=== PATIENT | female | born 1960 | race African-American/Black ===

== ENCOUNTER 2017-07-06 14:47 | Observation (INO) | payer OTHER ==
--- NOTE | 2017-07-06 15:00 | PDOC ---
Rapid Medical Evaluation Time Seen by Provider: 07/06/17 14:56 Medical Evaluation: Allergies Allergy/AdvReac Type Severity Reaction Status Date / Time No Known Allergies Allergy Unverified 08/28/13 10:23 07/06/17 14:56 Pt with c/o: ate pork skin with chocolate last night, no hx of gi disorders. Pt on brief exam: vss, epigastric tenderness, no ruq tenderness Pt ordered for : cbc, comp, lipase, Pt to proceed to the ED Discharge Disposition - Diagnosis Epigastric abdominal pain - Referrals Referrals: Deidra Claire MD [Primary Care Provider] - - Patient Instructions - Post Discharge Activity
[2017-07-06 15:21] LABS: BASO % 0.1 % (0-2.0); EOS % 0.3 % (0-4.5); HEMATOCRIT 41.5 % (32.4-45.2); HEMOGLOBIN 13.7 GM/dL (10.7-15.3); LYMPH % 7.8 % (8-40); MCH 33.5 pg (25.7-33.7); MEAN CELL VOLUME 101.7 fl (80-96); MEAN PLT VOLUME 8.8 fl (7.5-11.1); MONO % 4.2 % (3.8-10.2); NEUT % 87.6 % (42.8-82.8); PLATELET COUNT 192 K/MM3 (134-434); RBC 4.08 M/mm3 (3.60-5.2); RDW 13.1 % (11.6-15.6); WHITE BLOOD COUNT 9.8 K/mm3 (4.0-10.0)
[2017-07-06 15:56] LABS: BLOOD UREA NITROGEN 12 mg/dL (7-18); GLUCOSE,RANDOM 111 mg/dL (74-106)
[2017-07-06 15:57] LABS: ANION GAP 6 (8-16); CALCIUM 8.7 mg/dL (8.5-10.1); CHLORIDE 105 mmol/L (98-107); CO2 29 mmol/L (21-32); CREATININE 0.9 mg/dL (0.55-1.02); POTASSIUM 4.1 mmol/L (3.5-5.1); SODIUM 140 mmol/L (136-145)
[2017-07-06 15:58] LABS: ALBUMIN 4.2 g/dl (3.4-5.0); ALK PHOS 95 U/L (45-117); BILIRUBIN,TOTAL 0.6 mg/dL (0.2-1.0); LIPASE 803 U/L (73-393); SGOT/AST 28 U/L (15-37); SGPT/ALT 33 U/L (12-78); TOT PROT 7.5 g/dl (6.4-8.2)
[2017-07-06] MEDS ORDERED: SODIUM CHLORIDE 1,000 ML IV STA (17:17)
[2017-07-06] MEDS ORDERED: ONDANSETRON 4 MG/2 ML VIAL IVPB ONE (17:17)
--- NOTE | 2017-07-06 17:24 | PDOC ---
History of Present Illness - General Chief Complaint: Pain Stated Complaint: ABD PAIN Time Seen by Provider: 07/06/17 14:56 - History of Present Illness Initial Comments: 07/06/17 17:32 "The patient is a 56-year-old female, PMH of HLD, who presents to the ED with one day of epigastric pain. The patient states that the pain began shortly after she ate pork skins and chocolate last night. She reports multiple episodes of vomiting and diarrhea. The patient reports one episode of vomiting while in the ER after drinking some ntaalie kati, though she states that the pain has subsided significantly. The patient denies any fever, cough, or chills. She denies having any other symptoms. Allergies: NKDA Surgical History: Shoulder Surgery; Pt denies any prior abdominal surgeries Social History: She denies any tobacco, alcohol, or drug use. PCP: Dr. Claire" Past History - Past Medical History Allergies/Adverse Reactions: Allergies Allergy/AdvReac Type Severity Reaction Status Date / Time No Known Allergies Allergy Unverified 07/06/17 14:57 COPD: No - Suicide/Smoking/Psychosocial Hx Smoking History: Never smoked Review of Systems - Review of Systems Comments:: 07/06/17 17:37 "GENERAL/CONSTITUTIONAL: No fever or chills. No weakness. HEAD, EYES, EARS, NOSE AND THROAT: No change in vision. No ear pain or discharge. No sore throat. CARDIOVASCULAR: No chest pain or shortness of breath. RESPIRATORY: No cough, wheezing, or hemoptysis. GASTROINTESTINAL: (+)Nausea, vomiting, diarrhea, and epigastric pain. No constipation. GENITOURINARY: No dysuria, frequency, or change in urination. MUSCULOSKELETAL: No joint or muscle swelling or pain. No neck or back pain. SKIN: No rash NEUROLOGIC: No headache, vertigo, loss of consciousness, or change in strength/ sensation. ENDOCRINE: No increased thirst. No abnormal weight change. HEMATOLOGIC/LYMPHATIC: No anemia, easy bleeding, or history of blood clots. ALLERGIC/IMMUNOLOGIC: No hives or skin allergy. " *Physical Exam - Vital Signs Last Vital Signs Temp Pulse Resp BP Pulse Ox 97.3 F L 81 18 114/52 99 07/06/17 14:57 07/06/17 14:57 07/06/17 14:57 07/06/17 14:57 07/06/17 14:57 - Physical Exam Comments: 07/06/17 17:24 "GENERAL: Awake, alert, and fully oriented, in no acute distress HEAD: No signs of trauma EYES: PERRLA, EOMI, sclera anicteric, conjunctiva clear ENT: Auricles normal inspection, hearing grossly normal, nares patent, oropharynx clear without exudates. Moist mucosa NECK: Nontender, no stepoffs, Normal ROM, supple, no lymphadenopathy, JVD, or masses LUNGS: Breath sounds equal, clear to auscultation bilaterally. No wheezes, and no crackles HEART: Regular rate and rhythm, normal S1 and S2, no murmurs, rubs or gallops ABDOMEN: + mild epigastric tenderness, no rebound/guarding, negative strong EXTREMITIES: Normal range of motion, no edema. No clubbing or cyanosis. No cords, erythema, or tenderness NEUROLOGICAL: Cranial nerves II through XII intact. 5/5 strength and sensation in all extremities, Normal speech, normal gait SKIN: Warm, Dry, normal turgor, no rashes or lesions noted. " ED Treatment Course - LABORATORY CBC & Chemistry Diagram: 07/06/17 15:07 07/06/17 15:07 - ADDITIONAL ORDERS Additional order review: Laboratory Results 07/06/17 15:07 Sodium 140 Potassium 4.1 Chloride 105 Carbon Dioxide 29 Anion Gap 6 L BUN 12 Creatinine 0.9 Creat Clearance w eGFR > 60 Random Glucose 111 H Calcium 8.7 Total Bilirubin 0.6 AST 28 ALT 33 Alkaline Phosphatase 95 Total Protein 7.5 Albumin 4.2 Lipase 803 H 07/06/17 15:07 RBC 4.08 MCV 101.7 H MCHC 33.0 RDW 13.1 MPV 8.8 Neutrophils % 87.6 H Lymphocytes % 7.8 L Monocytes % 4.2 Eosinophils % 0.3 Basophils % 0.1 - RADIOLOGY Radiology Studies Ordered: Category Date Time Status ABDOMEN US [US] Stat Ultrasound 07/06/17 17:17 Ordered Medical Decision Making - Medical Decision Making 07/06/17 17:22 56 F with epigastric pain x 1 day after eating pork rinds and chocolate. Labs notable for lipase 800, consistent with pancreatitis. - RUQ sono to r/o cholelithiasis - IVF, pain control - Admit 07/06/17 18:05 Pt admitted to hospitalist. *DC/Admit/Observation/Transfer Diagnosis at time of Disposition: Pancreatitis - Discharge Dispostion Admit: Yes - Referrals Referrals: Deidra Claire MD [Primary Care Provider] - - Patient Instructions - Post Discharge Activity - Attestations Physician Attestion: 07/06/17 18:05 I, Dr. Cristo Woodall MD, attest that this document has been prepared under my direction and personally reviewed by me in its entirety. I further attest, that it accurately reflects all work, treatment, procedures and medical decision -making performed by me.
[2017-07-06] MEDS ORDERED: ONDANSETRON 4 MG/2 ML VIAL ONE (17:30)
[2017-07-06] MEDS ORDERED: ONDANSETRON 4 MG/2 ML VIAL IVPUSH PRN (18:34)
[2017-07-06] MEDS: SODIUM CHLORIDE 1,000 ML IV SCH (18:47)
--- NOTE | 2017-07-06 18:47 | HP ---
CHIEF COMPLAINT: nausea/vomiting PCP: Dr. Meadows HISTORY OF PRESENT ILLNESS: 56 year old female with a past medical history of hyperlipidemia (manages w/ lifestyle changes) presents for a 1 day history of nausea and vomiting. She states that last night she ate pork skins and pizza. She felt asymptomatic until this morning when she woke up and felt discomfort in her epigastrum. She became nauseous and vomited several times. The consistency of the emesis was of food, patient denies any blood or coffee ground emesis. She states that she felt lightheaded when vomiting and felt as if she was going to pass out, but she did not syncopize and maintained conciousness. Patient states that she has normal stools. Denies overt abdominal pain. Denies chest pain, shortness of breath, fevers, chills, diarrhea. ER course was notable for: (1) Lipase 803 (2) No EKG (3) Recent Travel: None PAST MEDICAL HISTORY: hyperlipidemia controlled by lifestyle modifications ( exercise, diet) PAST SURGICAL HISTORY: R sided rotator cuff repair Social History: Smoking: Never smoker Alcohol: Never drinker Drugs: Never Family History: Allergies No Known Allergies Allergy (Unverified 07/06/17 14:57) HOME MEDICATIONS: not on any home medications, only over the counter vitamins REVIEW OF SYSTEMS CONSTITUTIONAL: Absent: fever, chills, diaphoresis, generalized weakness, malaise, loss of appetite, weight change HEENT: Absent: rhinorrhea, nasal congestion, throat pain, throat swelling, difficulty swallowing, mouth swelling, ear pain, eye pain, visual changes CARDIOVASCULAR: Absent: chest pain, syncope, palpitations, irregular heart rate, lightheadedness , peripheral edema RESPIRATORY: Absent: cough, shortness of breath, dyspnea with exertion, orthopnea, wheezing, stridor, hemoptysis GASTROINTESTINAL: Absent: abdominal pain, abdominal distension, nausea, vomiting, diarrhea, constipation, melena, hematochezia GENITOURINARY: Absent: dysuria, frequency, urgency, hesitancy, hematuria, flank pain, genital pain MUSCULOSKELETAL: Absent: myalgia, arthralgia, joint swelling, back pain, neck pain SKIN: Absent: rash, itching, pallor HEMATOLOGIC/IMMUNOLOGIC: Absent: easy bleeding, easy bruising, lymphadenopathy, frequent infections ENDOCRINE: Absent: unexplained weight gain, unexplained weight loss, heat intolerance, cold intolerance NEUROLOGIC: Absent: headache, focal weakness or paresthesias, dizziness, unsteady gait, seizure, mental status changes, bladder or bowel incontinence PSYCHIATRIC: Absent: anxiety, depression, suicidal or homicidal ideation, hallucinations. PHYSICAL EXAMINATION Vital Signs - 24 hr 07/06/17 07/06/17 14:57 18:32 Temperature 97.3 F L Pulse Rate 81 Pulse Rate [ 68 Apical] Respiratory 18 16 Rate Blood Pressure 114/52 Blood Pressure 132/82 [Right] O2 Sat by Pulse 99 100 Oximetry (%) GENERAL: Awake, alert, and fully oriented, in no acute distress. HEAD: Normal with no signs of trauma. EYES: Pupils equal, round and reactive to light, extraocular movements intact, sclera anicteric, conjunctiva clear. No lid lag. EARS, NOSE, THROAT: Ears normal, nares patent, oropharynx clear without exudates. Moist mucous membranes. NECK: Normal range of motion, supple without lymphadenopathy, JVD, or masses. LUNGS: Breath sounds equal, clear to auscultation bilaterally. No wheezes, and no crackles. No accessory muscle use. HEART: Regular rate and rhythm, normal S1 and S2 without murmur, rub or gallop. ABDOMEN: Soft, nontender, not distended, normoactive bowel sounds, no guarding, no rebound, no masses. No hepatomegaly or splenomegaly. Aortic pulse felt in the periumbilical region on the left side. MUSCULOSKELETAL: Normal range of motion at all joints. No bony deformities or tenderness. No CVA tenderness. UPPER EXTREMITIES: 2+ pulses, warm, well-perfused. No cyanosis. No clubbing. No peripheral edema. LOWER EXTREMITIES: 2+ pulses, warm, well-perfused. No calf tenderness. No peripheral edema. NEUROLOGICAL: Cranial nerves II-XII intact. Normal speech. Normal gait. PSYCHIATRIC: Cooperative. Good eye contact. Appropriate mood and affect. SKIN: Warm, dry, normal turgor, no rashes or lesions noted, normal capillary refill. Laboratory Results - last 24 hr 07/06/17 07/06/17 15:07 15:07 WBC 9.8 RBC 4.08 Hgb 13.7 Hct 41.5 MCV 101.7 H MCH 33.5 MCHC 33.0 RDW 13.1 Plt Count 192 MPV 8.8 Neutrophils % 87.6 H Lymphocytes % 7.8 L Monocytes % 4.2 Eosinophils % 0.3 Basophils % 0.1 Sodium 140 Potassium 4.1 Chloride 105 Carbon Dioxide 29 Anion Gap 6 L BUN 12 Creatinine 0.9 Creat Clearance w eGFR > 60 Random Glucose 111 H Calcium 8.7 Total Bilirubin 0.6 AST 28 ALT 33 Alkaline Phosphatase 95 Total Protein 7.5 Albumin 4.2 Lipase 803 H ASSESSMENT/PLAN: 56 year old female w/ PMH hyperlipidemia presented to the ED with abdominal discomfort and nausea/vomiting x1 day likely secondary to pancreatitis #Pancreatitis: possible pancreatitis, treat empirically -f/u lipid panel -f/u EKG (QTc) and rule out ACS -troponin -gallbladder US ordered -NPO - advance diet as tolerated -IVF hydration -zofran PRN if no QTc prolongation -tylenol for pain #Hyperlipidemia: -f/u lipid panel #FEN IVF NS @ 125cc/hr electrolytes within normal limits NPO - advance diet as tolerated #Prophylaxis: -encourage ambulation #Disposition: -Admit for observation Visit type - Emergency Visit Emergency Visit: Yes Care time: The patient presented to the Emergency Department on the above date and was hospitalized for further evaluation of their emergent condition. - New Patient This patient is new to me today: Yes Date on this admission: 07/06/17 - Critical Care Critical Care patient: No
--- NOTE | 2017-07-06 19:39 | PN ---
Teaching Attending Note Name of Resident: Guanako Ramirez ATTENDING PHYSICIAN STATEMENT I saw and evaluated the patient. I reviewed the resident's note and discussed the case with the resident. I agree with the resident's findings and plan as documented. SUBJECTIVE: CC: N/V HPI : 56 y/o lady with h/o HLP who presented with N/V this am . last night she ate pork skinand Pizza and chocolate . this am she woke up with N /V , and epigastric fullness, but no actual abd pain. she denies intermittent abd pain, has no fever or chills, has no LOPEZ , works out at gym . No h/o pancreatic disorders in family. has no h/o alcohol abuse . no dysuria . OBJECTIVE: NAD , AAOx3 HEENT: MMM, no LAP in neck ,EOMI, no facial droop, round equal pupils reactive to light . CV: RRR, no MRG Lungs: CTAB ext: no edema , DP 2+ b/l . Abd: soft, NT, ND , NL BS , Neg Dorantes's . no hepatomegaly Neuro: EOMI, round equal reactive pupils , symmetric face , uvula and tongue at mid line . Strength 5/5 in upper and lower extremities proximally and distally , sensation to light touch NL , knee jerk and biceps reflexes 2+ ASSESSMENT AND PLAN: 56 y/o lady with h/o HLP who presented with N/V on am of admission 1- N/V: unclear etiology, possible gastritis or food poisoning . although her lipase is slightly elevated, her sx , and exam are not consistent with acute pancreatitis . need to r/o ACS - NPO for now - US of RUQ done , pending report - IVF , and nausea meds - EKg : NSR , no ST changes. TW flat-inverted in inferior leads. not clear if changes are new or old . Now sx free - check trop x 2 - check TG - PPI for possible gastritis 2- DvT px
[2017-07-06] MEDS ORDERED: PANTOPRAZOLE 40 MG TABLET (FP) ONE (20:22)
[2017-07-06] MEDS: PANTOPRAZOLE 40 MG TABLET (FP) PO SCH (20:35)
[2017-07-06] MEDS: HEPARIN NA (PORCINE) 5,000 UNITS/ML 1ML VIAL SQ SCH (21:34)
[2017-07-06 23:19] VITALS: BMI 25.2
[2017-07-07] MEDS: HEPARIN NA (PORCINE) 5,000 UNITS/ML 1ML VIAL SQ SCH ×2 (06:02→15:04)
[2017-07-07] MEDS: SODIUM CHLORIDE 1,000 ML IV SCH (06:03)
[2017-07-07 08:12] LABS: ALBUMIN 3.1 g/dl (3.4-5.0); ANION GAP 7 (8-16); BLOOD UREA NITROGEN 8 mg/dL (7-18); CALCIUM 7.7 mg/dL (8.5-10.1); CHLORIDE 110 mmol/L (98-107); CO2 28 mmol/L (21-32); GLUCOSE,RANDOM 84 mg/dL (74-106); MAGNESIUM 1.8 mg/dL (1.8-2.4); POTASSIUM 3.5 mmol/L (3.5-5.1); SODIUM 145 mmol/L (136-145)
[2017-07-07 08:16] LABS: CHOLESTEROL 187 mg/dL (50-200); CREATININE 0.9 mg/dL (0.55-1.02); HDL CHOLESTEROL 99 mg/dL (40-60); LDL CHOLESTEROL (ONLY SJRH) 87 mg/dL (5-100); PHOSPHOROUS 3.1 mg/dL (2.5-4.9); TRIGLYCERIDES 42 mg/dL (35-160)
[2017-07-07 08:26] LABS: HEMATOCRIT 32.5 % (32.4-45.2); HEMOGLOBIN 10.6 GM/dL (10.7-15.3); MCH 33.4 pg (25.7-33.7); MCHC 32.5 g/dl (32.0-36.0); MEAN CELL VOLUME 102.7 fl (80-96); MEAN PLT VOLUME 8.8 fl (7.5-11.1); PLATELET COUNT 157 K/MM3 (134-434); RBC 3.17 M/mm3 (3.60-5.2); RDW 12.7 % (11.6-15.6); WHITE BLOOD COUNT 6.9 K/mm3 (4.0-10.0)
[2017-07-07] MEDS: PANTOPRAZOLE 40 MG TABLET (FP) PO SCH (09:07)
[2017-07-07] MEDS ORDERED: POTASSIUM CHLORIDE TABS 20 MEQ TABLET.ER (FP) PO ONE (09:15)
--- NOTE | 2017-07-07 14:12 | EKG ---
Test Reason : Blood Pressure : / mmHG Vent. Rate : 071 BPM Atrial Rate : 071 BPM P-R Int : 140 ms QRS Dur : 076 ms QT Int : 380 ms P-R-T Axes : 052 067 005 degrees QTc Int : 412 ms NORMAL SINUS RHYTHM NONSPECIFIC ST AND T WAVE ABNORMALITY ABNORMAL ECG WHEN COMPARED WITH ECG OF 06-JUL-2017 19:19, NO SIGNIFICANT CHANGE WAS FOUND Confirmed by KATHIE NGUYEN MD ([id number]) on 07/07/2017 2:11:39 PM Referred By: Confirmed By:KATHIE NGUYEN MD
--- NOTE | 2017-07-07 14:14 | EKG ---
Test Reason : Blood Pressure : / mmHG Vent. Rate : 062 BPM Atrial Rate : 062 BPM P-R Int : 134 ms QRS Dur : 086 ms QT Int : 386 ms P-R-T Axes : 060 063 -06 degrees QTc Int : 391 ms NORMAL SINUS RHYTHM WITH SINUS ARRHYTHMIA NONSPECIFIC ST ABNORMALITY ABNORMAL ECG NO PREVIOUS ECGS AVAILABLE Confirmed by KATHIE NGUYEN MD ([id number]) on 07/07/2017 2:13:45 PM Referred By: Confirmed By:KATHIE NGUYEN MD
--- NOTE | 2017-07-07 14:27 | DS ---
Physical Exam: SUBJECTIVE: Patient seen and examined at bedside. Patient is asymptomatic and is not endorsing any complaints. She tolerated her food for breakfast. No further abdominal pain, nausea, vomiting. OBJECTIVE: Vital Signs Period Temp Pulse Resp BP Sys/Foy Pulse Ox Last 24 Hr 97.3 F-98.9 F 56-81 16-20 101-132/37-82 99-100 PHYSICAL EXAM GENERAL: Awake, alert, and fully oriented, in no acute distress. LUNGS: Breath sounds equal, clear to auscultation bilaterally. No wheezes, and no crackles. No accessory muscle use. HEART: Regular rate and rhythm, normal S1 and S2 without murmur, rub or gallop. ABDOMEN: Soft, nontender, not distended, normoactive bowel sounds, no guarding, no rebound, no masses. No hepatomegaly or splenomegaly. Aortic pulse felt in the periumbilical region on the left side. NEUROLOGICAL: Cranial nerves II-XII intact. Normal speech. Normal gait. LABS Laboratory Results - last 24 hr 07/06/17 07/06/17 07/06/17 15:07 15:07 20:49 WBC 9.8 RBC 4.08 Hgb 13.7 Hct 41.5 MCV 101.7 H MCH 33.5 MCHC 33.0 RDW 13.1 Plt Count 192 MPV 8.8 Neutrophils % 87.6 H Lymphocytes % 7.8 L Monocytes % 4.2 Eosinophils % 0.3 Basophils % 0.1 Sodium 140 Potassium 4.1 Chloride 105 Carbon Dioxide 29 Anion Gap 6 L BUN 12 Creatinine 0.9 Creat Clearance w eGFR > 60 Random Glucose 111 H Calcium 8.7 Phosphorus Magnesium Total Bilirubin 0.6 AST 28 ALT 33 Alkaline Phosphatase 95 Creatine Kinase 165 Creatine Kinase Index 0.6 CK-MB (CK-2) 1.112 Troponin I < 0.02 Total Protein 7.5 Albumin 4.2 Triglycerides Cholesterol Total LDL Cholesterol HDL Cholesterol Lipase 803 H 07/07/17 07/07/17 07/07/17 01:30 07:15 07:15 WBC 6.9 RBC 3.17 L D Hgb 10.6 L D Hct 32.5 D MCV 102.7 H MCH 33.4 MCHC 32.5 RDW 12.7 Plt Count 157 MPV 8.8 Neutrophils % Lymphocytes % Monocytes % Eosinophils % Basophils % Sodium 145 Potassium 3.5 Chloride 110 H Carbon Dioxide 28 Anion Gap 7 L BUN 8 Creatinine 0.9 Creat Clearance w eGFR Random Glucose 84 Calcium 7.7 L Phosphorus 3.1 Magnesium 1.8 Total Bilirubin AST ALT Alkaline Phosphatase Creatine Kinase 159 Creatine Kinase Index 0.6 CK-MB (CK-2) < 1.000 Troponin I < 0.02 Total Protein Albumin 3.1 L Triglycerides 42 Cholesterol 187 Total LDL Cholesterol 87 HDL Cholesterol 99 H Lipase HOSPITAL COURSE: Date of Admission:07/06/17 56 year old female w/ PMH hyperlipidemia presented to the ED with abdominal discomfort and nausea/vomiting x1 day. Initial presentation of epigastric pain and elevated lipase suggested possible pancreatitis, but ultrasound abdomen only revealed a gallbladder wall polyp. Patient was kept NPO and treated with fluid hydration overnight. Her lipid panel was within normal limits. On physical exam, a strong abdominal aortic pulse was palpated. Patient clinically improved in the ED and tolerated food in the morning. She was discharged home with instructions to follow with Dr. Claire in [address] Lynch to discuss gallbladder wall polyp. She was also counseled on diet/exercise as well as following up with Dr. Claire regarding screening for abdominal aortic aneurysm. Date of Discharge: 07/07/17 Minutes to complete discharge: 35 Discharge Summary Reason For Visit: PANCREATITIS Condition: Improved - Instructions Diet, Activity, Other Instructions: You were treated in the hospital for nausea and vomiting likely due to acute gastritis. You had an ultrasound performed of the abdomen which showed an 8mm gallbladder wall polyp. Please see your primary care physician for repeat imaging to monitor this polyp in 3-6 months. Your cholesterol was within normal limits on this exam You should have ultrasound screening performed for your abdomen because we found that you have a strong pulsation. Please talk to Dr. Claire about this screening to rule out aneurysm. Medical Recommendations: -Please maintain a healthy diet low in fats and continue to exercise regularly -Please make an appointment with your primary care physician Dr. Claire within 1 week of discharge to discuss your hospitalization as well as the ultrasound findings in your gallbladder and pulsation of your abdominal aorta. -Please make an appointment with the surgeon Dr. Lynch to discuss the gallbladder wall polyp If you experience severe abdominal pain, fevers, chills, nausea, vomiting, diarrhea, chest pain, shortness of breath, please return to the emergency room. Referrals: Cristo Lynch MD [Staff Physician] - 1 Week Deidra Claire MD [Primary Care Provider] - 1 Week Disposition: HOME - Home Medications Comprehensive Discharge Medication List: Ambulatory Orders NK [No Known Home Medication] 07/06/17 This patient is new to me today: No Emergency Visit: No Critical Care patient: No - Discharge Referral [facility]erred to [facility] Med P.C.: No
[2017-07-07 15:11] VITALS: BP 121/83; PULSE 67; TEMP 98.3
--- NOTE | 2017-07-07 19:05 | PN ---
Teaching Attending Note Name of Resident: Guanako Ramirez ATTENDING PHYSICIAN STATEMENT I saw and evaluated the patient. I reviewed the resident's note and discussed the case with the resident. I agree with the resident's findings and plan as documented. SUBJECTIVE:seen at 9 am No abd pain , no fever or chills , tolerated diet OBJECTIVE: NAD , AAOx3 CV: RRR, no MRG Lungs: CTAB ext: no edema , DP 2+ b/l . Abd: soft, NT, ND , NL BS , aortic pulse was felt in supra-umbilical area A/P 56 y/o lady with h/o HLP who presented with N/V on am of admission 1- N/V: unclear etiology, possible gastritis or food poisoning . she did nothave classic sx and signs of acute pancreatitis , but US, although not the best study , showed hypoechoic pancreas. ? very mild pancreatitis - tolerated diet - US with polyp, need repeat US and f/u as with surgery out pt - TG nl. - repeat EKG with no change and NL trop x 2 2- Need a doppler US to evaluate aorta due to the aortic pulse felt . this was explained to patient and understands the importance of f/u to r/o AAA dc home
== END 2017-07-07 15:47 | disposition home or self-care (01) ==
LOC: JER 14:47 → JERBED 18:05 → J6S 21:04
PROVIDERS: ADMIT Internal Medicine; ATTEND Internal Medicine
PROC: 3E033GC Introduction of Other Therapeutic Substance into Peripheral Vein, Percutaneous Approach (ICD-10-PCS; principal; 2017-07-06)
PROC: 3E0337Z Introduction of Electrolytic and Water Balance Substance into Peripheral Vein, Percutaneous Approach (ICD-10-PCS; 2017-07-06)
DX: K85.90 Acute pancreatitis without necrosis or infection, unspecified (principal); E78.5 Hyperlipidemia, unspecified
CPT/HCPCS: 36415; 76705-TC; 80048; 80053; 80061; 82040; 82550; 82553; 83690; 83721; 83735; 84100; 84484; 85025; 85027; 93005; 93010; 96361; 96374; 99285-25; G0378

== ENCOUNTER 2020-04-21 09:59 | Emergency (ER) | payer OTHER ==
[2020-04-21 10:23] VITALS: TEMP 98.1; BMI 24.0
[2020-04-21] MEDS ORDERED: ACETAMINOPHEN 1000 MG/100 ML VIAL (NON FORMULARY) IVPB ONE (10:31)
[2020-04-21] MEDS ORDERED: SODIUM CHLORIDE 1,000 ML IV STA (10:31)
[2020-04-21] MEDS ORDERED: FAMOTIDINE 20 MG/50 ML IVPB 20 MG/50 ML MG IVPB ONE ×2 (10:31→10:48)
[2020-04-21] MEDS ORDERED: ONDANSETRON 4 MG/2 ML VIAL IVPUSH ONE (10:31)
[2020-04-21] MEDS ORDERED: MAG HYDROX/AL HYDROX/SIMETH -MYLANTA- ORAL SUSPENSION PO ONE (10:32)
[2020-04-21] MEDS ORDERED: MAG HYDROX/AL HYDROX/SIMETH 30 ML UNIT-DOSE CUP ONE (10:48)
[2020-04-21 11:07] LABS: BASO % 0.5 % (0-2.0); EOS % 0.6 % (0-4.5); HEMATOCRIT 35.1 % (32.4-45.2); HEMOGLOBIN 11.9 GM/dL (10.7-15.3); LYMPH % 22.3 % (8-40); MCHC 33.9 g/dl (32.0-36.0); MEAN PLT VOLUME 8.9 fl (7.5-11.1); MONO % 6.4 % (3.8-10.2); NEUT % 70.2 % (42.8-82.8); PLATELET COUNT 181 K/MM3 (134-434); RBC 3.41 M/mm3 (3.60-5.2); RDW 12.7 % (11.6-15.6); WHITE BLOOD COUNT 7.6 K/mm3 (4.0-10.0)
[2020-04-21 11:32] LABS: CHLORIDE 103 mmol/L (98-107); POTASSIUM 3.7 mmol/L (3.5-5.1); SODIUM 140 mmol/L (136-145)
[2020-04-21 11:34] LABS: CALCIUM 9.3 mg/dL (8.5-10.1)
[2020-04-21 11:35] LABS: ALBUMIN 3.8 g/dl (3.4-5.0); ANION GAP 5 MMOL/L (8-16); BLOOD UREA NITROGEN 9.8 mg/dL (7-18); CO2 32 mmol/L (21-32); GLUCOSE,RANDOM 104 mg/dL (74-106); LIPASE 116 U/L (73-393)
[2020-04-21 11:38] LABS: CREATININE 0.9 mg/dL (0.55-1.3); PHOSPHOROUS 3.6 mg/dL (2.5-4.9); SGOT/AST 22 U/L (15-37); SGPT/ALT 23 U/L (13-61)
[2020-04-21 11:40] LABS: TOT PROT 7.2 g/dl (6.4-8.2)
[2020-04-21 11:41] LABS: ALK PHOS 86 U/L (45-117); BILIRUBIN,TOTAL 0.3 mg/dL (0.2-1)
[2020-04-21 12:46] LABS: EPI CELLS 5 /uL (0-25.1); HYALINE CASTS 1 /uL (0-3.1); PH,URINE 7.5 (5.0-8.0); URINE APPEARANCE CLEAR; URINE BACTERIA 139 /uL (0-1359); URINE BILIRUBIN NEGATIVE (NEGATIVE); URINE COLOR YELLOW; URINE GLUCOSE (UA) NEGATIVE (NEGATIVE); URINE KETONE NEGATIVE (NEGATIVE); URINE LEUK ESTERASE TRACE (NEGATIVE); URINE NITRITE NEGATIVE (NEGATIVE); URINE PROTEIN NEGATIVE (NEGATIVE); URINE RBC 3 /uL (0-23.9); URINE UROBILINOGEN 0.2 mg/dL (0.2-1.0); URINE WBC 12 /uL (0-25.8)
[2020-04-21 13:50] VITALS: BP 128/60; PULSE 66
== END 2020-04-21 14:10 | disposition home or self-care (01) ==
LOC: JER 09:59
PROC: 3E033NZ Introduction of Analgesics, Hypnotics, Sedatives into Peripheral Vein, Percutaneous Approach (ICD-10-PCS; principal; 2020-04-21)
PROC: 3E033GC Introduction of Other Therapeutic Substance into Peripheral Vein, Percutaneous Approach (ICD-10-PCS; 2020-04-21)
PROC: 3E0337Z Introduction of Electrolytic and Water Balance Substance into Peripheral Vein, Percutaneous Approach (ICD-10-PCS; 2020-04-21)
DX: K30 Functional dyspepsia (principal)
CPT/HCPCS: 36415; 76705-TC; 80053; 81003; 83690; 83735; 84100; 84484; 85025; 93005; 93010; 99285-25